=== PATIENT | male | born 1975 | race Two or more races ===

== ENCOUNTER 2024-11-16 17:01 | Inpatient (IN) | payer MEDICAID, OTHER ==
[~2024-11-16] VITALS: Ht 157.5 cm; Wt 55.6 kg
[2024-11-16] MEDS: SODIUM CHLORIDE 0.9% 1,000 ML IV ONE ×3 (17:44→19:11)
--- NOTE | 2024-11-16 17:56 | ED.PDOC ---
HPI Comments This is a 49 year old male presenting to the ED with chief complaint of chest pain. Patient reports that he has been experiencing left sided chest pain with associated bilateral hand cramping and pain radiating to the back for the past 2 days. Patient relays the has had some SOB for some time as well. Patient notes he drank ETOH heavily yesterday and did yard work outside yesterday. Patient denies any numbness, weakness, tingling, syncope, or dizziness. Chief Complaint: Chest Pain Time Seen by MD: 17:00 Reviewed Notes: Nurses Notes, Medications, Allergies Allergies: Coded Allergies: NO KNOWN ALLERGIES (Unverified , 11/16/24) Information Source: Patient, Relative Mode of Arrival: Ambulatory Severity: Moderate Timing: Days Duration: Since onset Prehospital treatment: None Location: Chest (L) Radiation: Back Quality: Sharp Onset: With Light Exertion, With Heavy Exertion Cardiac Risk Factors: None PE Risk Factors: None History of: None Associated Signs and Symptoms: SOB, Back Pain Past Medical History PAST MEDICAL HISTORY: Denies Surgical History: Denies all surgeries Family History Family History: Reviewed,noncontributory to illness Social History Smoker: Non-Smoker Alcohol: Heavy Drugs: Denies Drug Use Lives In: Home Constitutional: denies: chills, diaphoresis, fatigue, fever, malaise, sweats, weakness, others EENTM: denies: blurred vision, double vision, ear bleeding, ear discharge, ear drainage, ear pain, ear ringing, eye pain, eye redness, hearing loss, mouth pain, mouth swelling, nasal discharge, nose bleeding, nose congestion, nose pain, photophobia, tearing, throat pain, throat swelling, voice changes, others Respiratory: reports: shortness of breath; denies: cough, hemoptysis, ortho pnea, SOB at rest, SOB with excertion, stridor, wheezing, others Cardiovascular: reports: chest pain; denies: dizzy spells, diaphoresis, Dyspnea on exertion, edema, irregular heart beat, left arm pain, lightheadedness, palpitations, PND, syncope, others Gastrointestinal: denies: abdomen distended, abdominal pain, blood streaked bowels, constipated, diarrhea, dysphagia, difficulty swallowing, hematemesis, melena, nausea, poor appetite, poor fluid intake, rectal bleeding, rectal pain, vomiting, others Genitourinary: denies: burning, dysuria, flank pain, frequency, hematuria, incontinence, penile discharge, penile sore, pain, testicle pain, testicle swelling, urgency, others Neurological: denies: dizziness, fainting, headache, left sided numbness, left sided weakness, numbness, paresthesia, pre-existing deficit, right sided numbness, right sided weakness, seizure, speech problems, tingling, tremors, weakness, others Musculoskeletal: reports: back pain, others (Bilateral hand cramping); denies: gout, joint pain, joint swelling, muscle pain, muscle stiffness, neck pain Integumetry: denies: bruises, change in color, change in hair/nails, dryness, laceration, lesions, lumps, rash, wounds, others Allergic/Immunocompromised: denies: Difficulty Healing, Frequent Infections, Hives, Itching, others Hematologic/Lymphatic: denies: anemia, blood clots, easy bleeding, easy bruising, swollen glands, others Endocrine: denies: excessive hunger, excessive sweating, excessive thirst, excessive urination, flushing, intolerance to cold, intolerance to heat, unexplained weight gain, unexplained weight loss, others Psychiatric: denies: anxiety, bipolar disorder, depression, hopeless, panic disorder, schizophrenia, sleepless, suicidal, others All Other Systems: Reviewed and Negative Physical Exam General Appearance: No Apparent Distress, Normal HEENT: Normal ENT Inspection, Pharynx Normal, TMs Normal Neck: Full Range of Motion, Non-Tender, Normal, Normal Inspection Respiratory: Chest Non-Tender, Lungs Clear, No Accessory Muscle Use, No Respiratory Distress, Normal Breath Sounds Cardiovascular: No Edema, No JVD, No Murmur, No Gallop, Normal Peripheral Pulses, Regular Rate/Rhythm Breast Exam: Deferred Gastrointestinal: No Organomegaly, Non Tender, No Pulsatile Mass, Normal Bowel Sounds, Soft Genitalia: Deferred Pelvic: Deferred Rectal: Deferred Extremities: No calf tenderness, Normal capillary refill, Normal inspection, Normal range of motion, Non-tender, No pedal edema Musculoskeletal : Apperance: Normal Neurologic: Alert, fine hairer II-XII nml as Tested, No Motor Deficits, Normal Affect, Normal Mood, No Sensory Deficits Cerebellar Function: Normal Reflexes: Normal Skin: Dry, Normal Color, Warm Lymphatic: No Adenopathy Was a procedure done? Was a procedure done?: No CP Differential Dx Differential Diagnosis: Electrolyte Disorder X-Ray, Labs, Meds, VS Vital Signs Date Time Temp Pulse Resp B/P (MAP) Pulse Ox O2 Delivery O2 Flow Rate FiO2 11/16/24 18:34 86 18 91/44 (60) 98 11/16/24 18:02 75 17 88/38 (55) 99 11/16/24 17:57 71 11/16/24 17:44 227/166 (186) 11/16/24 17:43 98.5 74 18 159/113 (128) 98 98.5 11/16/24 17:03 97.7 95 20 81/49 95 97.7 Lab Test 11/16/24 18:35 11/16/24 17:21 Range/Units Troponin I High Sensitivity 6 8 </=54 ng/L White Blood Count 10.5 4.4-10.8 10^3/uL Red Blood Count 5.22 4.5-5.90 10^6/uL Hemoglobin 17.3 13.5-17.5 g/dL Hematocrit 50.1 41.0-53.0 % Mean Corpuscular Volume 95.9 80.0-100.0 fL Mean Corpuscular Hemoglobin 33.2 H 28.0-32.0 pg Mean Corpuscular Hemoglobin Concent 34.6 32.0-36.0 g/dL Red Cell Distribution Width 12.8 11.8-14.3 % Platelet Count 377 140-450 10^3/uL Mean Platelet Volume 8.8 6.9-10.8 fL Neutrophils (%) (Auto) 74.5 37.0-80.0 % Lymphocytes (%) (Auto) 17.9 10.0-50.0 % Monocytes (%) (Auto) 7.4 0.0-12.0 % Eosinophils (%) (Auto) 0.0 0.0-7.0 % Basophils (%) (Auto) 0.2 0.0-2.0 % Neutrophils # (Auto) 7.8 1.6-8.6 10 ^3/uL Lymphocytes # (Auto) 1.9 0.4-5.4 10 ^3/uL Monocytes # (Auto) 0.8 0-1.3 10 ^3/uL Eosinophils # (Auto) 0 0-0.8 10 ^3/uL Basophils # (Auto) 0 0-0.2 10 ^3/uL Nucleated Red Blood Cells 0.1 % Sodium Level 136 136-145 mmol/L Potassium Level 4.7 3.5-5.1 mmol/L Chloride Level 93 L 98-107 mmol/L Carbon Dioxide Level 19 L 20-31 mmol/L Anion Gap 24 H 5-15 Blood Urea Nitrogen 41 H 9-23 mg/dL Creatinine 4.85 H 0.700-1.30 mg/dL Glomerular Filtration Rate Calc 14 >90 mL/min BUN/Creatinine Ratio 8.5 L 10.0-20.0 Serum Glucose 114 H 74-106 mg/dL Lactic Acid Level 4.0 *H 0.4-2.0 mmol/L Calcium Level 10.0 8.7-10.4 mg/dL Current Medications Medications (Trade) Dose Ordered Sig/Kenisha Route Start Time Stop Time Status Last Admin Sodium Chloride 1,000 ml @ 1,000 mls/hr Q1H ONCE IV 11/16/24 17:15 11/16/24 18:14 DC 11/16/24 17:44 Sodium Chloride 1,000 ml @ 1,000 mls/hr Q1H ONCE IV 11/16/24 18:15 11/16/24 19:14 11/16/24 18:17 Sodium Chloride 1,000 ml @ 1,000 mls/hr Q1H ONCE IV 11/16/24 19:00 11/16/24 19:59 11/16/24 19:11 Time of 1ST Reevaluation: 18:00 Reevaluation 1ST: Unchanged Patient Education/Counseling: Diagnosis, Treatment Family Education/Counseling: No Family Present SEPSIS Sepsis Screen Date sepsis recognized/suspect: Nov 16, 2024 Time Sepsis recognized/suspect: 1702 Recent Procedure: No On Antibiotic Therapy: No Respiratory Rate >20: No Heart Rate >90: Yes Temp<36 C (96.8 F) or >38.3 C: No SBP <90 or MAP <65 mmHG: Yes New Acute Mental Status Change: No Is the patient on CPAP, BIPAP,: No Physician Orders Urinalysis (11/16/24 17:09) Chest Portable (11/16/24 17:09) Blood Culture (11/16/24 17:09) Troponin-I Hs (11/16/24 20:09) Electrocardigram (11/16/24 18:09) Electrocardigram (11/16/24 20:09) Sodium Chloride 0.9% (11/16/24 19:00) Cefepime 2gm/50ml Ns (Maxipime 2gm/50ml) (11/16/24 19:15) Lactated Ringer's (11/16/24 19:15) Blood Alcohol (11/16/24 19:13) Vital Signs Date Time Temp Pulse Resp B/P (MAP) Pulse Ox O2 Delivery O2 Flow Rate FiO2 11/16/24 18:34 86 18 91/44 (60) 98 11/16/24 18:02 75 17 88/38 (55) 99 11/16/24 17:57 71 11/16/24 17:44 227/166 (186) 11/16/24 17:43 98.5 74 18 159/113 (128) 98 98.5 11/16/24 17:03 97.7 95 20 81/49 95 97.7 Laboratory Tests Test 11/16/24 17:21 Lactic Acid Level 4.0 mmol/L (0.4-2.0) *H White Blood Count 10.5 10^3/uL (4.4-10.8) Medications Medications Dose Ordered Sig/Kenisha Route Start Time Stop Time Status Last Admin Dose Admin Sodium Chloride 1,000 ml @ 1,000 mls/hr Q1H ONCE IV 11/16/24 17:15 11/16/24 18:14 DC 11/16/24 17:44 Sodium Chloride 1,000 ml @ 1,000 mls/hr Q1H ONCE IV 11/16/24 18:15 11/16/24 19:14 11/16/24 18:17 Sodium Chloride 1,000 ml @ 1,000 mls/hr Q1H ONCE IV 11/16/24 19:00 11/16/24 19:59 11/16/24 19:11 Departure 1 Departure Time of Disposition: 19:14 (Patient with worsening chest pain. Patient's EKGs nonischemic. Troponins are negative. Initial lactic is elevated and patient is hypotensive. Patient is severely dehydrated. We will empirically cover patient with antibiotics and give IV fluids. We will admit patient for further workup and expert consultation) Impression: Primary Impression: Acute chest pain Additional Impressions: Generalized weakness Alcohol abuse Elevated lactic acid level Disposition: ADMITTED INPATIENT Admit to: [facility] Condition: Guarded Critical Care Note Critical Care Time?: Yes Critical care comment: Concern for sepsis Authorized and Performed by: Ana Luisa Barth MD Total critical care time: Approximately 108 minutes Due to a high probability of clinically significant, life threatening deterioration, the patient required my highest level of preparedness to intervene emergently and I personally spent this critical care time directly and personally managing the patient. This critical care time included obtaining a history; examining the patient; pulse oximetry; ordering and review of studies; arranging urgent treatment with development of a management plan; evaluation of patient's response to treatment; frequent reassessment; and, discussions with other providers. This critical care time was performed to assess and manage the high probability of imminent, life-threatening deterioration that could result in multi-organ failure. It was exclusive of separately billable procedures and treating other patients and teaching time. Please see my other sections and the rest of the note for further information on patient assessment and treatment. Stability Stability form required: No Heart Score Heart Score: Heart Score Response (Comments) Value History Highly Suspicious 2 EKG Repolarization Disturb 1 Age 45-64 1 Risk Factors No known risk factors 0 Troponin 1-2 x's Normal limit 1 Total 5 I personally scribed for ANA LUISA BARTH MD ([email or web address]) on 11/16/24 at 17:56. Electronically submitted by Miguel Carbone ([email or web address]). ANA LUISA BARTH MD Nov 16, 2024 17:56
[2024-11-16 18:04] LABS: Hematocrit 50.1 % (41.0-53.0); Hemoglobin 17.3 g/dL (13.5-17.5); Mean Corpuscular Hemoglobin 33.2 pg (28.0-32.0); Mean Corpuscular Volume 95.9 fL (80.0-100.0); Nucleated Red Blood Cells % 0.1 %
[2024-11-16 18:05] LABS: Potassium 4.7 mmol/L (3.5-5.1); Sodium 136 mmol/L (136-145)
[2024-11-16 18:06] LABS: Anion Gap 24 (5-15); Calcium 10.0 mg/dL (8.7-10.4)
[2024-11-16 18:11] LABS: BUN/Creatinine Ratio 8.5 (10.0-20.0)
[2024-11-16 18:38] LABS: Blood Urea Nitrogen 41 mg/dL (9-23); Carbon Dioxide 19 mmol/L (20-31); Chloride 93 mmol/L (98-107); Glucose 114 mg/dL (74-106)
--- NOTE | 2024-11-16 18:42 | DVH ---
CLINICAL HISTORY: weakness TECHNIQUE: Single view of the chest was obtained. COMPARISON: None FINDINGS: The heart size and pulmonary vasculature are normal. The lungs are clear. IMPRESSION: NO ACUTE CARDIOPULMONARY PROCESS.
--- NOTE | 2024-11-16 18:49 | ECG ---
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
[2024-11-16 18:56] LABS: Lactic Acid w/Reflex 4.0 mmol/L (0.4-2.0)
[2024-11-16] MEDS: LACTATED RINGER'S 1,000 ML IV ONE (20:04)
[2024-11-16] MEDS: CEFEPIME 2GM/50ML NS 50 ML IV ONE (20:04)
--- NOTE | 2024-11-16 20:40 | ECG ---
[facility] Test Date: 2024-11-16 Test Time: 20:07:26 Pat Name: WILSON FONTAINE Department: Room: 0287T Gender: M [employer]: JUAN : 1975 Requested By: ANA LUISA BAKER Order Number: [id number] Reading MD: Uzair Lloyd Measurements Intervals Angela Rate: 79 P: 60 SD: 147 QRS: 63 QRSD: 90 T: 0 QT: 427 QTc: 490 Interpretive Statements Sinus rhythm Abnormal R-wave progression, early transition Borderline prolonged QT interval Electronically Signed On 11-20-2024 10:22:23 PDT by Uzair Lloyd Please click the below link to view image of tracing.
[2024-11-16 20:48] VITALS: PULSE 75; RESP 16; O2SAT 98
[2024-11-16] MEDS ORDERED: ACETAMINOPHEN 325 MG TAB PO PRN (22:00)
[2024-11-16] MEDS ORDERED: HYDROcodone-ACET 5/325MG TAB PO PRN (22:00)
[2024-11-16] MEDS ORDERED: hydrALAZINE HCL 20 MG/ML VL IV PRN (22:00)
[2024-11-16] MEDS ORDERED: DOCUSATE SOD 100 MG CAP PO PRN (22:00)
[2024-11-16] MEDS ORDERED: ONDANSETRON HCL 4 MG/2 ML VIAL IV PRN (22:00)
[2024-11-16 22:07] LABS: Urine Protein, UAD 1+ (Negative)
[2024-11-16] MEDS: SODIUM CHLORIDE 0.9% 1,000 ML IV SCH (22:50)
[2024-11-16] MEDS: FOLIC ACID 1 MG in D5W 5% 50 ML INJ ONE (22:56)
[2024-11-16] MEDS: THIAMINE 100mg/ml INJ (200mg/2ml VIAL) IV ONE (23:13)
--- NOTE | 2024-11-16 23:40 | DVHHP2 ---
History of Present Illness Reason for Visit: Acute renal failure History of Present Illness The patient is a 49-year-old male with past medical history of alcohol abuse who presented to [facility] ED with complaint of chest pain. Patient reports that he has been experiencing left sided chest pain with associated s hortness of breaths, bilateral hand cramping and pain radiating to the back for the past 2 days. Patient states he drank alcohol heavily yesterday, patient was seen and evaluated in the ED, laboratory data shows WBC 10.5, platelets 377, sodium 136, potassium 4.7, BUN 41, creatinine 4.85, glucose 114, anion gap 24, lactic acid 4.0 trending down to 1.1, calcium 10.0, troponin 8, serum alcohol 46.9. Chest x-ray show no acute cardiopulmonary process. Please see medication orders section in the computer. On my assessment, patient denied chest pain, no headache, no dizziness, no numbness, no diaphoresis, no shortness of breath, no nausea, no vomiting, no fever, no chills. Patient was admitted for further evaluation and medical management. Past Medical History EtOH abuse Past Surgical History Denies all surgeries Family History Reviewed, noncontributory to the management of this case. Past Social History Patient lives at home, drinks alcohol heavily, denies smoking or illicit drugs abuse. Review of Systems Constitutional: No: Fever, Chills, Sweats, Weakness, Malaise, Other Eyes: No: Pain, Vision change, Conjunctivae inflammation, Eyelid inflammation, Other, Redness ENT: No: Ear pain, Ear discharge, Nose pain, Nose discharge, Nose congestion, Mouth pain, Mouth swelling, Throat pain, Throat swelling, Other Respiratory: Shortness of breath; No: Cough, Dry, SOB with excertion, Wheezing, Hemoptysis, Pleuritic Pain, Sputum, Wheezing, Other Cardiovascular: Chest Pain; No: Palpitations, Orthopnea, Paroxysmal Noc. Dyspnea, Edema, Lt Headedness, Other Gastrointestinal: No: Nausea, Vomiting, Abdominal Pain, Diarrhea, Constipation, Melena, Hematochezia, Other Genitourinary: No Dysuria, No Frequency, No Incontinence, No Hematuria, No Retention, No Other Musculoskeletal: other (Bilateral hand cramping), back pain; No: neck pain, shoulder pain, arm pain, hand pain, leg pain, foot pain Skin: No: Rash, Lesions, Jaundice, Bruising, Other Neurological: No: Weakness, Numbness, Incoordination, Change in speech, Confusion, Seizures, Other Allergies: Coded Allergies: NO KNOWN ALLERGIES (Unverified , 11/16/24) Medications Current Medications Medications Dose Ordered Sig/Kenisha Route Start Time Stop Time Status Last Admin Dose Admin Hydralazine HCl 10 mg Q6HP PRN IV 11/16/24 22:00 Thiamine HCl 100 mg DAILY IV 11/17/24 10:00 Folic Acid 1 mg/ Dextrose 50.2 ml @ 200.8 mls/ hr DAILY INJ 11/17/24 10:00 Ceftriaxone Sodium 50 ml @ 100 mls/hr DAILY@09 IV 11/17/24 09:00 Sodium Chloride 1,000 ml @ 60 mls/hr [id number] IV 11/16/24 22:00 11/16/24 22:50 60 MLS/HR Acetaminophen/ Hydrocodone Bitart 1 tab Q4HP PRN PO 11/16/24 22:00 Ondansetron HCl 4 mg Q4HP PRN IV 11/16/24 22:00 Docusate Sodium 100 mg BIDPRN PRN PO 11/16/24 22:00 Multivitamins 1 tab DAILY PO 11/17/24 10:00 Acetaminophen 650 mg Q6HP PRN PO 11/16/24 22:00 Exam Vital Signs Vital Signs Date Time Temp Pulse Resp B/P (MAP) Pulse Ox O2 Delivery O2 Flow Rate FiO2 11/16/24 20:48 75 16 98 Room Air* 0 21 11/16/24 20:00 93/52 (66) 11/16/24 17:43 98.5 98.5 General Appearance: Alert, Oriented X3, Cooperative, No acute distress HEENT: Atraumatic, PERRLA, EOMI, Mucous membr. moist/pink Respiratory: Normal air movement Cardiovascular: Regular rate, Normal S1, Normal S2, No murmurs Abdominal: Normal bowel sounds, Soft, No tenderness, No hepatospenomegaly, No masses Extremities: No clubbing, No cyanosis, No edema, Normal pulses, No tenderness/swelling Skin: No rashes, No breakdown, No significant lesion Neuro: Normal gait, Normal speech, Strength at 5/5 X4 ext, Normal tone, Sens ation intact, Cranial nerves 3-12 NL, Reflexes 2+, Other (Tremors) Psych/Mental Status: Mental status NL, Mood NL Labs/Xrays Labs Test 11/16/24 20:55 11/16/24 20:03 11/16/24 17:21 Range/Units Urine Color Light-yellow Yellow Urine Clarity Turbid H Clear Urine pH 5.5 5.0-9.0 Urine Specific [place] 1.011 1.001-1.035 Urine Protein 1+ H Negative Urine Ketones Trace Negative Urine Blood 2+ H Negative /uL Urine Nitrite Negative Negative Urine Bilirubin Negative Negative Urine Urobilinogen Normal Negative mg/dL Urine Leukocyte Esterase Negative Negative /uL Urine RBC 1 0 - 3 /hpf Urine Microscopic WBC 6 H 0-3 /HPF Urine Squamous Epithelial Cells Few <5 /hpf Urine Bacteria Few H None Seen /hpf Urine Mucus Few None Seen Urine Glucose Normal Normal mg/dL Lactic Acid Level 1.1 0.4-2.0 mmol/L Troponin I High Sensitivity 6 </=54 ng/L White Blood Count 10.5 4.4-10.8 10^3/uL Red Blood Count 5.22 4.5-5.90 10^6/uL Hemoglobin 17.3 13.5-17.5 g/dL Hematocrit 50.1 41.0-53.0 % Mean Corpuscular Volume 95.9 80.0-100.0 fL Mean Corpuscular Hemoglobin 33.2 H 28.0-32.0 pg Mean Corpuscular Hemoglobin Concent 34.6 32.0-36.0 g/dL Red Cell Distribution Width 12.8 11.8-14.3 % Platelet Count 377 140-450 10^3/uL Mean Platelet Volume 8.8 6.9-10.8 fL Neutrophils (%) (Auto) 74.5 37.0-80.0 % Lymphocytes (%) (Auto) 17.9 10.0-50.0 % Monocytes (%) (Auto) 7.4 0.0-12.0 % Eosinophils (%) (Auto) 0.0 0.0-7.0 % Basophils (%) (Auto) 0.2 0.0-2.0 % Neutrophils # (Auto) 7.8 1.6-8.6 10 ^3/uL Lymphocytes # (Auto) 1.9 0.4-5.4 10 ^3/uL Monocytes # (Auto) 0.8 0-1.3 10 ^3/uL Eosinophils # (Auto) 0 0-0.8 10 ^3/uL Basophils # (Auto) 0 0-0.2 10 ^3/uL Nucleated Red Blood Cells 0.1 % Sodium Level 136 136-145 mmol/L Potassium Level 4.7 3.5-5.1 mmol/L Chloride Level 93 L 98-107 mmol/L Carbon Dioxide Level 19 L 20-31 mmol/L Anion Gap 24 H 5-15 Blood Urea Nitrogen 41 H 9-23 mg/dL Creatinine 4.85 H 0.700-1.30 mg/dL Glomerular Filtration Rate Calc 14 >90 mL/min BUN/Creatinine Ratio 8.5 L 10.0-20.0 Serum Glucose 114 H 74-106 mg/dL Calcium Level 10.0 8.7-10.4 mg/dL Plasma/Serum Blood Alcohol 46.9 H <10 mg/dL PATIENT: WILSON FONTAINE ACCT: [id number] UNIT: [id number] : 1975 LOC: ER ROOM / BED: / AGE / SEX: 49 / M ADM STATUS: REG ER SERVICE 08 ORDERING PHYSICIAN: ANA LUISA BAKER MD PROCEDURE(s): CXRP - CHEST PORTABLE REASON: weakness ORDER NUMBER(s): [id number], ACCESSION NUMBER(s): [id number] CLINICAL HISTORY: weakness TECHNIQUE: Single view of the chest was obtained. COMPARISON: None FINDINGS: The heart size and pulmonary vasculature are normal. The lungs are clear. IMPRESSION: NO ACUTE CARDIOPULMONARY PROCESS. SEPSIS Sepsis Screen Date sepsis recognized/suspect: Nov 16, 2024 Time Sepsis recognized/suspect: 1702 Recent Procedure: No On Antibiotic Therapy: No Respiratory Rate >20: No Heart Rate >90: Yes Temp<36 C (96.8 F) or >38.3 C: No SBP <90 or MAP <65 mmHG: Yes New Acute Mental Status Change: No Is the patient on CPAP, BIPAP,: No Physician Orders Chest Portable (11/16/24 17:09) Blood Culture (11/16/24 17:09) Electrocardigram (11/16/24 20:09) *Dr. Tri Brown -Alberto Nilsa (11/16/24 21:50) Hydralazine Injection (Apresoline Inject (11/16/24 22:00) Thiamine Inj (11/17/24 10:00) Folic Acid (11/17/24 10:00) Ceftriaxone 1gm/50ml (Rocephin) (11/17/24 09:00) Allergies (11/16/24 21:50) Code Status (11/16/24 21:50) Sodium Chloride 0.9% (11/16/24 22:00) Oxygen Per Hour (11/16/24 21:50) Hydrocodone-Acet 5/325mg Tab ([place] (11/16/24 22:00) Ondansetron Hcl (Zofran) (11/16/24 22:00) Docusate Sodium Capsule (Colace Capsule) (11/16/24 22:00) Multiple Vitamin Tablet (Mvi Tab) (11/17/24 10:00) Complete Blood Count (11/17/24 04:00) Comprehensive Metabolic Panel (11/17/24 04:00) Cardiac Diet-2gna,Lofat,Lochol (11/17/24 Breakfast) Condition: Serious (11/16/24 21:50) Acetaminophen Tablet (Tylenol Tablet) (11/16/24 22:00) Bedrest With Bathroom Privileg (11/16/24 21:50) Sequential Compression Device (11/16/24 ) Admit (11/16/24 23:38) Nitroglycerin Sublingual (Ntrostat Subli (11/16/24 23:45) Morphine Sulfate Injection (11/16/24 23:45) Stat Ekg For Chest Pain (11/16/24 23:38) Notify Md Of Changes From Base (11/16/24 23:38) Behavioral Scientist For 24 Hours (11/16/24 23:38) Emergency Dysrhythmia Protocol (11/16/24 23:38) Rhythm Strips Once Every Shift (11/16/24 23:38) Oxygen By Nasal Cannula (11/16/24 23:38) Vital Signs Date Time Temp Pulse Resp B/P (MAP) Pulse Ox O2 Delivery O2 Flow Rate FiO2 11/16/24 20:48 75 16 98 Room Air* 0 21 11/16/24 20:07 79 11/16/24 20:00 87 27 93/52 (66) 96 11/16/24 18:34 86 18 91/44 (60) 98 11/16/24 18:02 75 17 88/38 (55) 99 11/16/24 17:57 71 11/16/24 17:44 227/166 (186) 11/16/24 17:43 98.5 74 18 159/113 (128) 98 98.5 11/16/24 17:03 97.7 95 20 81/49 95 97.7 Laboratory Tests Test 11/16/24 17:21 11/16/24 20:03 Lactic Acid Level 4.0 mmol/L (0.4-2.0) *H 1.1 mmol/L (0.4-2.0) White Blood Count 10.5 10^3/uL (4.4-10.8) Medications Medications Dose Ordered Sig/Kenisha Route Start Time Stop Time Status Last Admin Dose Admin Cefepime HCl 50 ml @ 50 mls/hr ONCE ONCE IV 11/16/24 19:15 11/16/24 20:14 DC 11/16/24 20:04 50 MLS/HR Lactated Ringer's 1,000 ml @ 1,000 mls/hr Q1H ONCE IV 11/16/24 19:15 11/16/24 20:14 DC 11/16/24 20:04 1,000 MLS/HR Sodium Chloride 1,000 ml @ 60 mls/hr [id number] IV 11/16/24 22:00 11/16/24 22:50 60 MLS/HR Sodium Chloride 1,000 ml @ 1,000 mls/hr Q1H ONCE IV 11/16/24 17:15 11/16/24 18:14 DC 11/16/24 17:44 1,000 MLS/HR Sodium Chloride 1,000 ml @ 1,000 mls/hr Q1H ONCE IV 11/16/24 18:15 11/16/24 19:14 DC 11/16/24 18:17 1,000 MLS/HR Sodium Chloride 1,000 ml @ 1,000 mls/hr Q1H ONCE IV 11/16/24 19:00 11/16/24 19:59 DC 11/16/24 19:11 1,000 MLS/HR Thiamine HCl 100 mg ONCE ONCE IV 11/16/24 22:00 11/16/24 22:13 DC 11/16/24 23:13 100 MG Assessment/Plan Assessment/Plan Acute chest pain Alcohol abuse Generalized weakness Elevated lactic acid level Plan 1. Admit to telemetry unit 2. Breathing treatment 3. Pain control management 4. IV antibiotic management 5. Management of fluids and electrolytes 6. Consultation for hospitalist 7. Diagnostic test chest x-ray 8. DVT prophylaxis-on SCDs 9. Repeat labs CBC, CMP in a.m. 10. Continue with current medical management 11. Treatment plan discussed with patient and RN. Patient verbalized bella traore. Plan discussed with: Patient, Other (RN) My Orders Orders - RONEY SALDAÑA DNP Procedure Category Date Status Time *Dr. Tri Brown -Da CONS 11/16/24 Transmitted Nilsa 21:50 Hydralazine Injection PHA 11/16/24 In Process (Apresoline Inject 22:00 Thiamine Inj PHA 11/17/24 In Process 10:00 Folic Acid PHA 11/17/24 In Process 10:00 Ceftriaxone 1gm/50ml PHA 11/17/24 In Process (Rocephin) 09:00 Allergies VITALIY 11/16/24 In Process 21:50 Code Status CODE 11/16/24 Transmitted 21:50 Sodium Chloride 0.9% PHA 11/16/24 In Process 22:00 Oxygen Per Hour RT 11/16/24 Transmitted 21:50 Hydrocodone-Acet PHA 11/16/24 In Process 5/325mg Tab ([place] 22:00 Ondansetron Hcl PHA 11/16/24 In Process (Zofran) 22:00 Docusate Sodium PHA 11/16/24 In Process Capsule (Colace 22:00 Multiple Vitamin PHA 11/17/24 In Process Tablet (Mvi Tab) 10:00 Complete Blood Count LAB 11/17/24 Verified 04:00 Comprehensive LAB 11/17/24 Verified Metabolic Panel 04:00 Cardiac DIET 11/17/24 Transmitted Diet-2gna,Lofat,Lochol Breakfast Condition: Serious VITALIY 11/16/24 In Process 21:50 Acetaminophen Tablet PHA 11/16/24 In Process (Tylenol Tablet) 22:00 Bedrest With Bathroom VITALIY 11/16/24 In Process Privileg 21:50 Sequential VITALIY 11/16/24 In Process Compression Device Admit ADMIT 11/16/24 Transmitted 23:38 Nitroglycerin PHA 11/16/24 Transmitted Sublingual (Ntrostat 23:45 Morphine Sulfate PHA 11/16/24 Transmitted Injection 23:45 Stat Ekg For Chest [facility] 11/16/24 Transmitted Pain 23:38 Notify Md Of Changes [facility] 11/16/24 Transmitted From Base 23:38 Behavioral Scientist For [facility] 11/16/24 Transmitted 24 Hours 23:38 Emergency Dysrhythmia [facility] 11/16/24 Transmitted Protocol 23:38 Rhythm Strips Once [facility] 11/16/24 Transmitted Every Shift 23:38 Oxygen By Nasal RT 11/16/24 Transmitted Cannula 23:38 Problem List: (1) Acute chest pain (2) Alcohol abuse (3) Generalized weakness (4) Elevated lactic acid level Date of Service: Nov 16, 2024 Billing Provider: RONEY SALDAÑA DNP Common Visit Codes: [id number] INP/OBS CARE (HIGH) RONEY SALDAÑA DNP Nov 16, 2024 23:40
[2024-11-16] MEDS ORDERED: MORPHINE SULFATE INJ 2 MG/ml SYRG IV PRN (23:45)
[2024-11-16] MEDS ORDERED: NITROGLYCERIN 0.4 MG SL TAB SL PRN (23:45)
[2024-11-17] VITALS (8 sets, daily range): BP systolic 85–130; BP diastolic 48–83; PULSE 49–65; RESP 14–18; TEMP 97.1–98.4; O2SAT 96–100
--- NOTE | 2024-11-17 03:52 | ECG ---
[facility] Test Date: 2024-11-16 Test Time: 17:10:55 Pat Name: WILSON FONTAINE Department: ED Room: 0287T Gender: M Director Environmental: EDNA : 1975 Requested By: ANA LUISA BAKER Order Number: [id number] Reading MD: Uzair Lloyd Measurements Intervals [place] Rate: 95 P: 83 NM: 133 QRS: 65 QRSD: 77 T: -52 QT: 328 QTc: 413 Interpretive Statements Sinus rhythm Abnormal R-wave progression, early transition Borderline repolarization abnormality Minimal ST elevation, anterior leads Electronically Signed On 11-20-2024 10:21:40 PDT by Uzair Lloyd Please click the below link to view image of tracing.
[2024-11-17] MEDS ORDERED: LORazepam 2MG/ML-1ML VIAL IV PRN (04:15)
[2024-11-17 05:33] LABS: Hematocrit 38.4 % (41.0-53.0); Hemoglobin 13.3 g/dL (13.5-17.5); Mean Corpuscular Hemoglobin 33.8 pg (28.0-32.0); Mean Corpuscular Volume 97.8 fL (80.0-100.0); Nucleated Red Blood Cells % 0.1 %
[2024-11-17 05:44] LABS: Alanine Aminotransferase 24 U/L (7-40); Albumin 3.7 g/dL (3.2-4.8); Alkaline Phosphatase 100 U/L (46-116); Anion Gap 11 (5-15); BUN/Creatinine Ratio 14.5 (10.0-20.0); Blood Urea Nitrogen 23 mg/dL (9-23); Carbon Dioxide 20 mmol/L (20-31); Glucose 80 mg/dL (74-106); Sodium 139 mmol/L (136-145); Total Protein 6.2 g/dL (5.7-8.2)
[2024-11-17 05:46] LABS: Bilirubin, Total 1.8 mg/dL (0.2-1.0); Calcium 8.0 mg/dL (8.7-10.4); Chloride 108 mmol/L (98-107); Potassium 3.2 mmol/L (3.5-5.1)
[2024-11-17] MEDS ORDERED: SOD CHL 0.45% 1,000 ML IV SCH (06:30)
[2024-11-17] MEDS: MULTIPLE VITAMIN TAB PO SCH (10:02)
[2024-11-17] MEDS: THIAMINE 100mg/ml INJ (200mg/2ml VIAL) IV SCH (10:02)
--- NOTE | 2024-11-17 10:12 | DVHINCON2 ---
Date of service: Nov 17, 2024 Referring Physician Carly Hanks NP Reason for Consultation ELEVATED CREATININE History of Present Illness This is a 49-year-old male with history of alcohol abuse presenting to the emergency room with left-sided chest pain associated with shortness of breath. Initial evaluation in the emergency room showing a creatinine of 4.85 and hence a Nephrology consultation. Patient seen and examined at bedside. Past Medical History Past Medical History EtOH abuse Past Surgical History Past Surgical History Denies all surgeries Family History Reviewed, noncontributory to the management of this case. Social History Patient lives at home, drinks alcohol heavily, denies smoking or illicit drugs abuse. Allergies: Coded Allergies: NO KNOWN ALLERGIES (Unverified , 11/16/24) Current Medications Current Medications Medications (Trade) Dose Ordered Sig/Kenisha Route PRN Reason Start Time Stop Time Status Last Admin Hydralazine HCl (Apresoline Injection) 10 mg Q6HP PRN IV SBP>150 11/16/24 22:00 Thiamine HCl 100 mg DAILY IV 11/17/24 10:00 11/17/24 10:02 Folic Acid 1 mg/ Dextrose 50.2 ml @ 200.8 mls/ hr DAILY INJ 11/17/24 10:00 Ceftriaxone Sodium 50 ml @ 100 mls/hr DAILY@09 IV 11/17/24 09:00 11/17/24 10:01 Sodium Chloride 1,000 ml @ 60 mls/hr [id number] IV 11/16/24 22:00 11/16/24 22:50 Acetaminophen/ Hydrocodone Bitart ([place] 5/325MG Tab) 1 tab Q4HP PRN PO MODERATE PAIN (4-6 PAIN SCALE) 11/16/24 22:00 Ondansetron HCl (Zofran) 4 mg Q4HP PRN IV NAUSEA / VOMITING 11/16/24 22:00 Docusate Sodium (Colace Capsule) 100 mg BIDPRN PRN PO FOR CONSTIPATION 11/16/24 22:00 Multivitamins (Mvi Tab) 1 tab DAILY PO 11/17/24 10:00 11/17/24 10:02 Acetaminophen (Tylenol Tablet) 650 mg Q6HP PRN PO PAIN SCALE 1-3 OR TEMP>100.4 11/16/24 22:00 Nitroglycerin (Ntrostat Sublingual) 0.4 mg Q5MINP PRN SL FOR CHEST PAIN 11/16/24 23:45 Morphine Sulfate 2 mg Q30M PRN IV FOR CHEST PAIN 11/16/24 23:45 Lorazepam (Ativan Inj) 1 mg Q2HP PRN IV ALCOHOL WITHDRAWAL SYMPTOMS 11/17/24 04:15 Sodium Chloride 1,000 ml @ 125 mls/hr Q8H IV 11/17/24 06:30 Review of Systems 12 point review of system negative except as stated in the HPI Vital Signs Vital Signs Date Time Temp Pulse Resp B/P (MAP) Pulse Ox O2 Delivery O2 Flow Rate FiO2 11/17/24 08:14 56 18 98 Room Air* 0 21 11/17/24 08:14 97.8 98/60 (73) 97.8 Physical Exam General Appearance: Alert, Oriented X3, Cooperative, No acute distress HEENT: Atraumatic, PERRLA, EOMI, Mucous membr. moist/pink Respiratory: Normal air movement Cardiovascular: Regular rate, Normal S1, Normal S2, No murmurs Abdominal: Normal bowel sounds, Soft, No tenderness, No hepatospenomegaly, No masses Extremities: No clubbing, No cyanosis, No edema, Normal pulses, No tenderness/swelling Skin: No rashes, No breakdown, No significant lesion Neuro: Normal gait, Normal speech, Strength at 5/5 X4 ext, Normal tone, S ensation intact, Cranial nerves 3-12 NL, Reflexes 2+, Other (Tremors) Psych/Mental Status: Mental status NL, Mood NL Labs/Diagnostic Data Labs Test 11/17/24 04:54 11/16/24 20:55 11/16/24 20:03 11/16/24 17:21 Range/Units White Blood Count 6.9 # 4.4-10.8 10^3/uL Red Blood Count 3.93 L 4.5-5.90 10^6/uL Hemoglobin 13.3 #L 13.5-17.5 g/dL Hematocrit 38.4 #L 41.0-53.0 % Mean Corpuscular Volume 97.8 80.0-100.0 fL Mean Corpuscular Hemoglobin 33.8 H 28.0-32.0 pg Mean Corpuscular Hemoglobin Concent 34.5 32.0-36.0 g/dL Red Cell Distribution Width 12.6 11.8-14.3 % Platelet Count 271 140-450 10^3/uL Mean Platelet Volume 8.6 6.9-10.8 fL Neutrophils (%) (Auto) 62.6 37.0-80.0 % Lymphocytes (%) (Auto) 25.0 10.0-50.0 % Monocytes (%) (Auto) 11.4 0.0-12.0 % Eosinophils (%) (Auto) 0.4 0.0-7.0 % Basophils (%) (Auto) 0.6 0.0-2.0 % Neutrophils # (Auto) 4.3 1.6-8.6 10 ^3/uL Lymphocytes # (Auto) 1.7 0.4-5.4 10 ^3/uL Monocytes # (Auto) 0.8 0-1.3 10 ^3/uL Eosinophils # (Auto) 0 0-0.8 10 ^3/uL Basophils # (Auto) 0 0-0.2 10 ^3/uL Nucleated Red Blood Cells 0.1 % Sodium Level 139 136-145 mmol/L Potassium Level 3.2 L 3.5-5.1 mmol/L Chloride Level 108 #H 98-107 mmol/L Carbon Dioxide Level 20 20-31 mmol/L Anion Gap 11 5-15 Blood Urea Nitrogen 23 # 9-23 mg/dL Creatinine 1.59 #H 0.700-1.30 mg/dL Glomerular Filtration Rate Calc 53 >90 mL/min BUN/Creatinine Ratio 14.5 10.0-20.0 Serum Glucose 80 74-106 mg/dL Calcium Level 8.0 L 8.7-10.4 mg/dL Total Bilirubin 1.8 H 0.2-1.0 mg/dL Aspartate Amino Transferase (AST) 29 13-40 U/L Alanine Aminotransferase (ALT) 24 7-40 U/L Alkaline Phosphatase 100 46-116 U/L Total Protein 6.2 5.7-8.2 g/dL Albumin 3.7 3.2-4.8 g/dL Urine Color Light-yellow Yellow Urine Clarity Turbid H Clear Urine pH 5.5 5.0-9.0 Urine Specific [place] 1.011 1.001-1.035 Urine Protein 1+ H Negative Urine Ketones Trace Negative Urine Blood 2+ H Negative /uL Urine Nitrite Negative Negative Urine Bilirubin Negative Negative Urine Urobilinogen Normal Negative mg/dL Urine Leukocyte Esterase Negative Negative /uL Urine RBC 1 0 - 3 /hpf Urine Microscopic WBC 6 H 0-3 /HPF Urine Squamous Epithelial Cells Few <5 /hpf Urine Bacteria Few H None Seen /hpf Urine Mucus Few None Seen Urine Glucose Normal Normal mg/dL Lactic Acid Level 1.1 0.4-2.0 mmol/L Troponin I High Sensitivity 6 </=54 ng/L Plasma/Serum Blood Alcohol 46.9 H <10 mg/dL Assessment Acute kidney injury secondary to volume depletion Alcohol abuse Hypokalemia Plan/Recommendation Increase IV fluids to 100 mL/hour. Replace potassium BMP and magnesium in a.m.. Plan discussed with: Patient DAYANA COLORADO MD Nov 17, 2024 10:12
[2024-11-17] MEDS: FOLIC ACID 1 MG in D5W 5% 50 ML INJ SCH (10:21)
[2024-11-17] MEDS: POTASSIUM CHL 20 Meq TABLET PO ONE (12:42)
[2024-11-17] MEDS: SODIUM CHLORIDE 0.9% 1,000 ML IV SCH (12:47)
[2024-11-17] MEDS ORDERED: POTASSIUM EFFERVESENT TAB 25 MEQ PO ONE (13:00)
--- NOTE | 2024-11-17 13:43 | DVH ---
INDICATION: elevated lft and dev TECHNIQUE: Multiple real-time sonographic images of the abdomen were obtained. COMPARISON: None FINDINGS: The liver is homogenous in echogenicity. The liver measures 15cm. No intrahepatic biliary ductal dilatation is noted. The gallbladder wall measures 0.2 cm and is unremarkable. Gallbladder polyp measuring 8mm. The comm on duct measures 0.3 cm and is unremarkable. No pericholecystic fluid is noted. The right kidney measures 10cm. No hydronephrosis. The left kidney measures 9cm. No hydronephrosis. The spleen measures 9 cm, within normal limits. The echogenicity is within normal limits. The pancreas is not well visualized due to obscuration from bowel gas. The visualized portions of the IVC and aorta are grossly unremarkable. IMPRESSION: Gallbladder polyp measuring 8mm
--- NOTE | 2024-11-17 15:06 | DVHPN2 ---
Progress Note Date Seen: Nov 17, 2024 Medical Necessity Reason Pt with a Central, PICC or Fol: No Medical Necessity Reason Alcohol intoxication Subjective Review of Systems Negative except as above Patient reports: No new complaints Objective vital signs Vital Sign Date Time Temp Pulse Resp B/P (MAP) Pulse Ox O2 Delivery O2 Flow Rate FiO2 11/17/24 14:00 98.9 62 17 92/61 (71) 99 98.9 11/17/24 08:14 Room Air* 0 21 Total Intake and Output 11/16/24 11/16/24 11/17/24 15:00 23:00 07:00 Intake Total 3000 ml Balance 3000 ml medications Current Medications Medications Dose Ordered Sig/Kenisha Route Start Time Stop Time Status Last Admin Dose Admin Hydralazine HCl 10 mg Q6HP PRN IV 11/16/24 22:00 Thiamine HCl 100 mg DAILY IV 11/17/24 10:00 11/17/24 10:02 100 MG Folic Acid 1 mg/ Dextrose 50.2 ml @ 200.8 mls/ hr DAILY INJ 11/17/24 10:00 11/17/24 10:21 200.8 MLS/HR Ceftriaxone Sodium 50 ml @ 100 mls/hr DAILY@09 IV 11/17/24 09:00 11/17/24 10:01 100 MLS/HR Acetaminophen/ Hydrocodone Bitart 1 tab Q4HP PRN PO 11/16/24 22:00 Ondansetron HCl 4 mg Q4HP PRN IV 11/16/24 22:00 Docusate Sodium 100 mg BIDPRN PRN PO 11/16/24 22:00 Multivitamins 1 tab DAILY PO 11/17/24 10:00 11/17/24 10:02 1 TAB Acetaminophen 650 mg Q6HP PRN PO 11/16/24 22:00 Nitroglycerin 0.4 mg Q5MINP PRN SL 11/16/24 23:45 Morphine Sulfate 2 mg Q30M PRN IV 11/16/24 23:45 Lorazepam 1 mg Q2HP PRN IV 11/17/24 04:15 Sodium Chloride 1,000 ml @ 100 mls/hr Q10H IV 11/17/24 11:15 11/17/24 12:47 100 MLS/HR Examination: GENERAL:Normal, HEENT:Normal, NECK:Normal, LUNGS:Normal, CVS:Normal, ABDOMEN:Abnormal (Epigastric tenderness), MSK:Normal, SKIN:Normal, NEURO:Normal laboratory and microbiology Laboratory Tests 11/17/24 04:54 Test 11/17/24 04:54 Range/Units Serum Glucose 80 74-106 mg/dL Problem List/Assessment/Plan Problems(with codes): (1) Alcohol abuse (2) Generalized weakness (3) Elevated lactic acid level Problem List/Assessment/Plan SHARI on CKD Hyperbilirubinemia Alcohol intoxication pending withdrawal Hypokalemia Gallbladder polyp with out obstruction IV fluids Distension antibiotics Trend renal function Nephrology consulted. Follow up with the renal recommendations Thiamine folate and multivitamin supplement Daily CIWA scale Regular diet Full code Heparin for DVT prophylaxis No GI prophylaxis needed Plan discussed with: Patient My Orders My Orders Orders - SANJEEV MENA MD Procedure Category Date Status Time Abdomen Complete US 11/17/24 Resulted Sonogram 12:47 Date of Service: Nov 17, 2024 Billing Provider: SANJEEV MENA MD Common Visit Codes: [id number] INP/OBS CARE(HIGH) SANJEEV MENA MD Nov 17, 2024 15:06
[2024-11-17] MEDS: SODIUM CHLORIDE 0.9% 500 ML IV ONE (15:30)
[2024-11-17] MEDS: HEPARIN SODIUM (PORCINE) 5000 UNITS/ML 1ML VIAL SC SCH (21:37)
[2024-11-18] VITALS (7 sets, daily range): BP systolic 106–135; BP diastolic 62–88; PULSE 54–79; RESP 16–18; TEMP 97.7–98.4; O2SAT 98–100
[2024-11-18 07:44] LABS: Chloride 107 mmol/L (98-107); Potassium 3.8 mmol/L (3.5-5.1); Sodium 140 mmol/L (136-145)
[2024-11-18 07:45] LABS: Anion Gap 8 (5-15); Carbon Dioxide 25 mmol/L (20-31)
[2024-11-18 07:47] LABS: Calcium 8.6 mg/dL (8.7-10.4)
[2024-11-18 07:50] LABS: BUN/Creatinine Ratio 13.7 (10.0-20.0); Blood Urea Nitrogen 10 mg/dL (9-23); Glucose 83 mg/dL (74-106)
[2024-11-18 07:51] LABS: Magnesium 2.0 mg/dL (1.6-2.6)
--- NOTE | 2024-11-18 09:57 | DVHPN2 ---
Progress Note - Dictate Date Seen: Nov 18, 2024 Medical Necessity Reason Pt with a Central, PICC or Fol: No Subjective NO ACUTE ISSUES OVERNIGHT vital signs Vital Sign Date Time Temp Pulse Resp B/P (MAP) Pulse Ox O2 Delivery O2 Flow Rate FiO2 11/18/24 08:37 97.7 55 16 122/64 (83) 100 97.7 11/17/24 20:00 Room Air* 0 21 Total Intake and Output 11/17/24 11/17/24 11/18/24 15:00 23:00 07:00 Intake Total 100.2 ml 1620 ml 1760 ml Output Total 450 ml Balance -349.8 ml 1620 ml 1760 ml medications Current Medications Medications Dose Ordered Sig/Kenisha Route Start Time Stop Time Status Last Admin Dose Admin Hydralazine HCl 10 mg Q6HP PRN IV 11/16/24 22:00 Thiamine HCl 100 mg DAILY IV 11/17/24 10:00 11/17/24 10:02 100 MG Folic Acid 1 mg/ Dextrose 50.2 ml @ 200.8 mls/ hr DAILY INJ 11/17/24 10:00 11/17/24 10:21 200.8 MLS/HR Ceftriaxone Sodium 50 ml @ 100 mls/hr DAILY@09 IV 11/17/24 09:00 11/18/24 09:25 100 MLS/HR Acetaminophen/ Hydrocodone Bitart 1 tab Q4HP PRN PO 11/16/24 22:00 Ondansetron HCl 4 mg Q4HP PRN IV 11/16/24 22:00 Docusate Sodium 100 mg BIDPRN PRN PO 11/16/24 22:00 Multivitamins 1 tab DAILY PO 11/17/24 10:00 11/17/24 10:02 1 TAB Acetaminophen 650 mg Q6HP PRN PO 11/16/24 22:00 Nitroglycerin 0.4 mg Q5MINP PRN SL 11/16/24 23:45 Morphine Sulfate 2 mg Q30M PRN IV 11/16/24 23:45 Lorazepam 1 mg Q2HP PRN IV 11/17/24 04:15 Sodium Chloride 1,000 ml @ 100 mls/hr Q10H IV 11/17/24 11:15 11/18/24 09:25 100 MLS/HR Heparin Sodium (Porcine) 5,000 units Q12HR SC 11/17/24 22:00 objective General Appearance: Alert, Oriented X3, Cooperative, No acute distress HEENT: Atraumatic, PERRLA, EOMI, Mucous membr. moist/pink Respiratory: Normal air movement Cardiovascular: Regular rate, Normal S1, Normal S2, No murmurs Abdominal: Normal bowel sounds, Soft, No tenderness, No hepatospenomegaly, No masses Extremities: No clubbing, No cyanosis, No edema, Normal pulses, No tenderness/swelling Skin: No rashes, No breakdown, No significant lesion Neuro: Normal gait, Normal speech, Strength at 5/5 X4 ext, Normal tone, Sensation intact, Cranial nerves 3-12 NL, Reflexes 2+, Other (Tremors) Psych/Mental Status: Mental status NL, Mood NL laboratory and microbiology Laboratory Tests 11/18/24 06:14 11/17/24 04:54 Test 11/18/24 06:14 Range/Units Serum Glucose 83 74-106 mg/dL Problem List Acute kidney injury secondary to volume depletion, resolved Alcohol abuse Hypokalemia Assessment/Plan Since SHARI has resolved we will sign off. Plan discussed with: DAYANA Singh MD Nov 18, 2024 09:57
[2024-11-18 15:15] LABS: Hematocrit 38.7 % (41.0-53.0); Hemoglobin 13.5 g/dL (13.5-17.5); Mean Corpuscular Hemoglobin 33.5 pg (28.0-32.0); Mean Corpuscular Volume 95.5 fL (80.0-100.0); Nucleated Red Blood Cells % 0.0 %
[2024-11-18 15:28] LABS: Alanine Aminotransferase 26 U/L (7-40); Albumin 3.8 g/dL (3.2-4.8); Alkaline Phosphatase 100 U/L (46-116); Anion Gap 8 (5-15); BUN/Creatinine Ratio 15.6 (10.0-20.0); Bilirubin, Total 0.5 mg/dL (0.2-1.0); Blood Urea Nitrogen 12 mg/dL (9-23); Calcium 9.0 mg/dL (8.7-10.4); Carbon Dioxide 26 mmol/L (20-31); Chloride 105 mmol/L (98-107); Potassium 4.1 mmol/L (3.5-5.1); Sodium 139 mmol/L (136-145); Total Protein 6.2 g/dL (5.7-8.2)
[2024-11-18 15:36] LABS: Glucose 106 mg/dL (74-106)
--- NOTE | 2024-11-18 18:05 | DVHDS2 ---
Discharge Summary Date of Admission Nov 16, 2024 at 23:38 Date of Discharge: Nov 18, 2024 Admitting Diagnosis Alcohol intoxication SHARI Labs/Diagnostic Data: Laboratory Results Test 11/18/24 14:47 11/18/24 06:14 11/16/24 20:55 11/16/24 20:03 White Blood Count 5.6 10^3/uL (4.4-10.8) Red Blood Count 4.05 10^6/uL (4.5-5.90) Hemoglobin 13.5 g/dL (13.5-17.5) Hematocrit 38.7 % (41.0-53.0) Mean Corpuscular Volume 95.5 fL (80.0-100.0) Mean Corpuscular Hemoglobin 33.5 pg (28.0-32.0) Mean Corpuscular Hemoglobin Concent 35.0 g/dL (32.0-36.0) Red Cell Distribution Width 12.3 % (11.8-14.3) Platelet Count 267 10^3/uL (140-450) Mean Platelet Volume 8.8 fL (6.9-10.8) Neutrophils (%) (Auto) 61.9 % (37.0-80.0) Lymphocytes (%) (Auto) 26.9 % (10.0-50.0) Monocytes (%) (Auto) 9.8 % (0.0-12.0) Eosinophils (%) (Auto) 0.5 % (0.0-7.0) Basophils (%) (Auto) 0.9 % (0.0-2.0) Neutrophils # (Auto) 3.5 10 ^3/uL (1.6-8.6) Lymphocytes # (Auto) 1.5 10 ^3/uL (0.4-5.4) Monocytes # (Auto) 0.5 10 ^3/uL (0-1.3) Eosinophils # (Auto) 0 10 ^3/uL (0-0.8) Basophils # (Auto) 0.1 10 ^3/uL (0-0.2) Nucleated Red Blood Cells 0.0 % Sodium Level 139 mmol/L (136-145) Potassium Level 4.1 mmol/L (3.5-5.1) Chloride Level 105 mmol/L (98-107) Carbon Dioxide Level 26 mmol/L (20-31) Anion Gap 8 (5-15) Blood Urea Nitrogen 12 mg/dL (9-23) Creatinine 0.77 mg/dL (0.700-1.30) Glomerular Filtration Rate Calc 110 mL/min (>90) BUN/Creatinine Ratio 15.6 (10.0-20.0) Serum Glucose 106 mg/dL (74-106) Calcium Level 9.0 mg/dL (8.7-10.4) Total Bilirubin 0.5 mg/dL (0.2-1.0) Aspartate Amino Transferase (AST) 35 U/L (13-40) Alanine Aminotransferase (ALT) 26 U/L (7-40) Alkaline Phosphatase 100 U/L (46-116) Total Protein 6.2 g/dL (5.7-8.2) Albumin 3.8 g/dL (3.2-4.8) Magnesium Level 2.0 mg/dL (1.6-2.6) Urine Color Light-yellow (Yellow) Urine Clarity Turbid (Clear) Urine pH 5.5 (5.0-9.0) Urine Specific [place] 1.011 (1.001-1.035) Urine Protein 1+ (Negative) Urine Ketones Trace (Negative) Urine Blood 2+ /uL (Negative) Urine Nitrite Negative (Negative) Urine Bilirubin Negative (Negative) Urine Urobilinogen Normal mg/dL (Negative) Urine Leukocyte Esterase Negative /uL (Negative) Urine RBC 1 /hpf (0 - 3) Urine Microscopic WBC 6 /HPF (0-3) Urine Squamous Epithelial Cells Few /hpf (<5) Urine Bacteria Few /hpf (None Seen) Urine Mucus Few (None Seen) Urine Glucose Normal mg/dL (Normal) Lactic Acid Level 1.1 mmol/L (0.4-2.0) Troponin I High Sensitivity 6 ng/L (</=54) Test 11/16/24 17:21 Plasma/Serum Blood Alcohol 46.9 mg/dL (<10) Other Laboratory Tests 11/18/24 14:47 Brief Hx & Hospital Course: he patient is a 49-year-old male with past medical history of alcohol abuse who presented to [facility] ED with complaint of chest pain. Patient reports that he has been experiencing left sided chest pain with associated shortness of breaths, bilateral hand cramping and pain radiating to the back for the past 2 days. Patient states he drank alcohol heavily yesterday, patient was seen and evaluated in the ED, laboratory data shows WBC 10.5, platelets 377, sodium 136, potassium 4.7, BUN 41, creatinine 4.85, glucose 114, anion gap 24, lactic acid 4.0 trending down to 1.1, calcium 10.0, troponin 8, serum alcohol 46.9. Chest x-ray show no acute cardiopulmonary process. Patient remains auscultated on the . Patient received IV fluids, thiamine folate and multivitamin. The patient is awake alert resting in bed. No apparent distress vital signs stable no withdrawal symptoms. Patient is stable to be discharged home Condition at Discharge: Good Final Diagnosis/Problems List Alcohol intoxication Generalized weakness elevated lactic acid Problems List: (1) Alcohol abuse Status: Acute (2) Generalized weakness Status: Acute (3) Elevated lactic acid level Status: Acute Discharge Disposition: Home Discharge Instruct/Medications Diet: Regular Activity: No Restrictions, As Tolerated Discharge Statement: "Patient was advised to return to the ER or call 911 if any headaches, dizziness, shortness of breath, chest pain, abdominal pain, bleeding, fevers, or worsening of medical condition. Patient was counseled about treatment plan, medications, possible side effects, patientverbalized understanding. All questions were answered to the best of my ability. This discharge took greater then 30 minutes in planning, reviewing documentation, counseling the patient, and discussing with other team members." ASSESSMENT ASSESSMENT Assessment Date of Service: Nov 18, 2024 Billing Provider: SANJEEV MENA MD Common Visit Codes: 97810-[place]/OBS DISCH DAY >30min SANJEEV MENA MD Nov 18, 2024 18:05
[2024-11-18] MEDS ORDERED: FOLI-119 PO (18:25)
[2024-11-18] MEDS ORDERED: THIA100T10 PO (18:25)
== END 2024-11-18 20:28 | disposition home or self-care (01) | DRG 198 ==
LOC: ER 17:01 → OVERFLOW 23:38 → TELE-WESTW 11-17 16:33
PROVIDERS: ADMIT Internal Medicine; ATTEND Internal Medicine
DX: I24.9 Acute ischemic heart disease, unspecified (principal); N17.0 Acute kidney failure with tubular necrosis; E87.6 Hypokalemia; F10.129 Alcohol abuse with intoxication, unspecified; N18.9 Chronic kidney disease, unspecified; R79.89 Other specified abnormal findings of blood chemistry; E80.6 Other disorders of bilirubin metabolism; K82.4 Cholesterolosis of gallbladder; E86.9 Volume depletion, unspecified; Z79.899 Other long term (current) drug therapy; Y90.2 Blood alcohol level of 40-59 mg/100 ml
CPT/HCPCS: 36415; 71045; 76700; 80048; 80053; 80320; 81001; 83605; 83735; 84484; 85025; 87040; 93005; 96360; 96361; 99291; G0378; J0692; J7060